=== PATIENT | female | born 1990 | race Caucasian/White ===

== ENCOUNTER 2017-08-28 18:15 | Emergency (ER) | payer BC ==
[2017-08-28 18:56] LABS: #Basophils 0.1 thou/uL (0.0-0.2); #Eosinphils 0.1 thou/uL (0.0-0.7); #Lymphocytes 2.5 thou/uL (1.20-3.40); #Monocytes 0.9 thou/uL (0.11-0.59); #Neutrophils 6.5 thou/uL (1.40-6.50); %Basophils 1.2 % (0.0-1.0); %Eosinophils 0.7 % (0.0-10.0); %Lymphocytes 24.4 % (21.0-51.0); %Monocytes 8.9 % (0.0-10.0); %Neutrophils 64.8 % (42.0-75.0); Hemoglobin 13.9 g/dL (12.0-16.0); Mean Corpuscular HGB CONC 33.3 g/dL (32.0-36.0); Mean Corpuscular Hemoglobin 31.9 pg (27.0-31.0); Mean Corpuscular Volume 95.7 fl (81.0-99.0); Mean Platelet Volume 6.9 fL (7.4-10.4); Platelet Count 314 thou/uL (130-400); RBC Distribution Width 11.1 % (11.5-14.5); Red Blood Cell (RBC) Count 4.36 mill/uL (4.20-5.40); White Blood Cell (WBC) Count 10.1 thou/uL (4.8-10.8)
[2017-08-28 19:01] LABS: Bilirubin Negative (Negative); Blood, Urine Negative (Negative); Clarity CLOUDY (Clear); Glucose, Urine (Dipstick) Negative (Negative); Leukocyte Negative (Negative); Nitrite Negative (Negative); Pregnancy Test - Urine (BHCG) POSITIVE (Negative); Protein, Urine (Dipstick) Negative (Neg-Trace); Specific Gravity, Urine 1.011 (1.002-1.036); Urobilinogen 0.2 mg/dL (0.2-1.0)
[2017-08-28 19:02] LABS: Pregu Control Background? CLEAR/WHITE (CLR/WHITE); Pregu Control Bar Appear? YES (CONTROL BAR); Specific Gravity 1.011 (1.002-1.036)
[2017-08-28 19:12] LABS: ALT (SGPT) 13 U/L (8-55); AST (SGOT) 16 U/L (5-34); Albumin 4.2 g/dL (3.5-5.0); Alkaline Phosphatase 55 U/L (40-150); Anion Gap 9 mmol/L (10-20); BUN (Urea Nitrogen) 10 mg/dL (7.0-18.7); Bilirubin, Total 0.4 mg/dL (0.2-1.2); Calc. Creatinine Clearance 0 mL/min (70-130); Calcium 9.3 mg/dL (7.8-10.44); Carbon Dioxide 27 mmol/L (22-29); Chloride 104 mmol/L (98-107); Estimated GFR-MDRD Greater than 90; Globulin 2.5 g/dL (2.4-3.5); Glucose 90 mg/dL (70-105); Lipase 40 U/L (8-78); Potassium 3.5 mmol/L (3.5-5.1); Protein, Total 6.7 g/dL (6.0-8.3); Sodium 136 mmol/L (136-145)
[2017-08-28] MEDS ORDERED: Metoclopramide HCl 10 MG/2 ML VIAL ONE (19:22)
== END 2017-08-28 22:40 | disposition home or self-care (01) ==
LOC: ERS 18:15
DX: O21.0 Mild hyperemesis gravidarum (principal); O99.341 Other mental disorders complicating pregnancy, first trimester; F41.9 Anxiety disorder, unspecified; Z3A.01 Less than 8 weeks gestation of pregnancy
CPT/HCPCS: 36415; 80053; 81003; 81025; 83690; 85025; 96361; 96365; J2765

== ENCOUNTER 2018-04-17 09:53 | Inpatient (IN) | payer BC ==
[2018-04-17] MEDS ORDERED: NS / Oxytocin 40 units/1000ml 1,000 ML IV PRN (10:09)
[2018-04-17] MEDS ORDERED: Promethazine HCl 25 MG/ML VIAL IM PRN ×3 (10:09→21:46)
[2018-04-17] MEDS ORDERED: Ibuprofen 800 MG TAB PO PRN (10:09)
[2018-04-17] MEDS ORDERED: Acetaminophen 500 MG TAB PO PRN (10:09)
[2018-04-17] MEDS ORDERED: Ondansetron HCl/PF 4 MG/2 ML Vial IVP PRN ×4 (10:09→21:46)
[2018-04-17] MEDS ORDERED: Lidocaine 1% (PF) 30 ML VIAL SC PRN (10:09)
--- NOTE | 2018-04-17 10:15 | PDOC.FPROB ---
FMR OB H&P: HPI - History of Present Illness Chief Complaint: SROM, Contractions Indentification: 27 year old History of Present Illness: 27 year old at 40.2 wks with KARI of 04/15/2018 presents with clear SROM around 7:35 this AM. Patient states that she is also having regular painful contractions that started 5 minutes after SROM. She endorses vaginal bleeding since SROM this AM, noted when using the restroom. Patient denies headache, vision changes, RUQ pain. She is requesting an epidural. 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 History: History of D&C - Surgical History Sx History: D&C - Social History Social History: Denies alcohol, drug, or tobacco use FMR OB H&P: Medications - Current Home Medications: Medication Instructions Recorded Confirmed Type No122/Iron/Folic Acid 1 tab PO DAILY 04/17/18 04/17/18 History [ Multi Tablet] Allergies/Adverse Reactions: Allergies Allergy/AdvReac Type Severity Reaction Status Date / Time No Known Allergies Allergy Verified 04/17/18 10:36 FMR OB H&P: ROS - Review of Systems General: denies: fever/chills, weight/appetite/sleep changes, fatigue Eyes: denies: vision changes, scotomas ENT: reports: nasal congestion, rhinorrhea. denies: sore throat, pain with swallowing Cardiovascular: denies: chest pain, palpitation, edema Respiratory: denies: cough, congestion, shortness of breath Gastrointestinal: denies: abdominal pain, nausea, vomiting, diarrhea Genitourinary (Female): reports: polyuria, vaginal bleeding. denies: dysuria, vaginal discharge Musculoskeletal: denies: pain Neurologic: denies: seizures, weakness Integumentary: denies: itching, rash, lesions Hematologic/Lymphatic: denies: prolonged or excessive bleeding Psychological: denies: depression, anxiety FMR OB H&P: Vital Signs - Maternal Vital signs: BP 125/78 Afebrile See EMR for other values - Heart Tones Baseline: 130 Variability: moderate Acceleration: present Deceleration: absent Category: category 1 [place] contractions every: q3-4 minutes FMR OB H&P: Physical Exam - Physical Exam General: NAD, awake, alert and oriented HEENT: MMM, grossly normal vision, grossly normal hearing Neck: supple Heart: RRR, no murmurs/rubs/gallops General: no respiratory distress, no retractions Abdomen: soft, gravid, non-tender Musculoskeletal: pulses present Neurological: no focal deficit Skin: no rash, capillary refill <2 seconds Lymphatic: no unusual bruising or bleeding Psychiatric: intact recent and remote memory, good judgement and insight, normal mood and affect - Pelvic Exam SVE: at 9:45 AM by nurse Presentation: cephalic FMR OB H&P: A/P - Problem List (1) SROM (spontaneous rupture of membranes) Current Visit: Yes Status: Acute Code(s): [id number] - Comment: - At 7:45 AM - Clear fluid - Painful contractions appx 5 minutes after SROM - Expectant management; anticipate vaginal delivery (2) Current Visit: Yes Status: Acute Qualifiers: Weeks of gestation: 40 weeks Qualified Code(s): Z3A.40 - 40 weeks gestation of Comment: 27 year old at 40.2 wks with KARI of 04/15/2018 - Uncomplicated - Expectant management Assessment and Plan: 27 year old at 40.2 wks SROM - At appx 7:45 AM, clear fluid - Contractions started 5 minutes after rupture of membranes - Cervical check: at 9:45 AM - Expectant management; recheck in 1 hour - Will consider augmentation wit pitocin in 1 hour if no change - Patient requesting epidural for pain control; anesthesia notified sIUP - Term at 40.2 wks with KARI of 04/15/2018 - See plan as above Hx of SAB x2 - s/p D&C x1 Disposition: Stable. Admit to L&D for expected vaginal delivery. Discussion: Date/Time: 04/17/18 1013 This H&P was discussed with Dr. Cr who agrees with the above documentation and plan. Signature: Paula Espinoza, PGY-2 Attending Addendum - Attending Addendum Date/Time: 04/17/18 1341 I personally evaluated the patient and discussed the management with Dr. Tejada. I agree with the History, Examination, Assessment and Plan documented above.
[2018-04-17 10:29] VITALS: BMI 35.6
[2018-04-17 10:39] LABS: Hemoglobin 13.1 g/dL (12.0-16.0); Mean Corpuscular HGB CONC 32.9 g/dL (32.0-36.0); Mean Corpuscular Hemoglobin 28.6 pg (27.0-31.0); Mean Corpuscular Volume 86.9 fL (78.0-98.0); Mean Platelet Volume 7.6 fL (7.4-10.4); Platelet Count 344 thou/uL (130-400); RBC Distribution Width 12.9 % (11.5-14.5); Red Blood Cell (RBC) Count 4.58 mill/uL (4.20-5.40); White Blood Cell (WBC) Count 9.7 thou/uL (4.8-10.8)
[2018-04-17] MEDS: Lactated Ringer's 1,000 ML IV SCH ×2 (10:40→12:26)
[2018-04-17 11:17] LABS: Syphilis Antibody Nonreactive (Nonreactive); Syphilis Antibody Index 0.04 S/CO (<1.00 Non-Reactive)
[2018-04-17 11:18] LABS: HBSAg Index 0.16 S/CO (0-0.99); Hep B Surf Ag Non-Reactive S/CO (NonReactive)
[2018-04-17] MEDS ORDERED: Fentanyl 4 mcg/Bup 0.1% Cadd 100 ML ONE (11:32)
[2018-04-17] MEDS ORDERED: PROPOFOL 200 MG/20 ML VIAL ONE (11:35)
[2018-04-17] MEDS ORDERED: Ketorolac Tromethamine 30 MG/ML VIAL ONE ×2 (11:35→18:33)
[2018-04-17] MEDS ORDERED: Dexamethasone 20 MG/5 ML VIAL ONE (11:35)
[2018-04-17] MEDS ORDERED: PHENYLEPHRINE-NS 100 MCG/ML 10 ML SYRINGE ONE ×2 (11:35→18:41)
[2018-04-17] MEDS ORDERED: Lidocaine 2% MPF 10 ML AMP (For Epidural Use) ONE (11:35)
[2018-04-17] MEDS ORDERED: Succinylcholine Chloride 20 MG/ML 10 ml SYRINGE FS ONE ×2 (11:35→18:21)
--- NOTE | 2018-04-17 11:50 | PDOC.EVN ---
Event Note - Event Note Event Note: at 402/7 weeks presents with SROM at 0745, now with UCs. SVE on admit is /vtx. FHts stable, UCs q 2-4 mins. GBS reportedly negative. Requesting epidural. Dr. Darnell has been notified.
--- NOTE | 2018-04-17 12:28 | PDOC.LDPN ---
Labor & Delivery Progress Note - Subjective Subjective: comfortable - Objective Vital signs reviewed and normal: yes General: NAD, resting Uterine fundus: non tender SVE: 6/90/0 at 12:25 by Zakia Dilation: 6 Effacement: 90% Station: 0 FHT: category 1, variability present [place] contractions every: q2-3 minutes - Assessment (1) SROM (spontaneous rupture of membranes) Code(s): [id number] - Current Visit: Yes Status: Acute Comment: - At 7:45 AM - Clear fluid - Painful contractions appx 5 minutes after SROM - Expectant management; anticipate vaginal delivery (2) Current Visit: Yes Status: Acute Qualifiers: Weeks of gestation: 40 weeks Qualified Code(s): Z3A.40 - 40 weeks gestation of Comment: 27 year old at 40.2 wks with KARI of 04/15/2018 - Uncomplicated - Expectant management (3) Active labor at term Code(s): [id number] - Current Visit: Yes Status: Acute Comment: Cervical check at 9:40 was 4/90/0 Repeat cervical check at 12:25 was 6/90/0 Expectant management Category I strip Plan: continue plan of care <Paula Espinoza - Last Filed: 04/17/18 12:26> - Assessment (1) SROM (spontaneous rupture of membranes) Code(s): [id number] - Current Visit: Yes Status: Acute Comment: - At 7:45 AM - Clear fluid - Painful contractions appx 5 minutes after SROM - Expectant management; anticipate vaginal delivery (2) Current Visit: Yes Status: Acute Qualifiers: Weeks of gestation: 40 weeks Qualified Code(s): Z3A.40 - 40 weeks gestation of Comment: 27 year old at 40.2 wks with KARI of 04/15/2018 - Uncomplicated - Expectant management <William Cr - Last Filed: 04/17/18 13:43> Attending Addendum - Attending Addendum Date/Time: 04/17/18 1342 I have evaluated the patient and discussed the management with Dr. Tejada. I agree with the Examination, Assessment and Plan documented above. The patient is progressing and has an epidural in place. <William Cr - Last Filed: 04/17/18 13:43>
--- NOTE | 2018-04-17 14:30 | PDOC.LDPN ---
Labor & Delivery Progress Note - Subjective Subjective: comfortable - Objective Vital signs reviewed and normal: yes General: NAD, resting Uterine fundus: non tender SVE: 2:25 by Zakia Dilation: 8 Effacement: 90% Station: 0 FHT: category 1, variability present [place] contractions every: q2-3 minutes - Assessment (1) SROM (spontaneous rupture of membranes) Code(s): [id number] - Current Visit: Yes Status: Acute Comment: - At 7:45 AM - Clear fluid - Painful contractions appx 5 minutes after SROM - Expectant management; anticipate vaginal delivery (2) Current Visit: Yes Status: Acute Qualifiers: Weeks of gestation: 40 weeks Qualified Code(s): Z3A.40 - 40 weeks gestation of Comment: 27 year old at 40.2 wks with KARI of 04/15/2018 - Uncomplicated - Expectant management (3) Active labor at term Code(s): [id number] - Current Visit: Yes Status: Acute Comment: Cervical check at 9:40 was 4/90/0 Repeat cervical check at 12:25 was 6/90/0 Repeat cervical check at 2:25 was 8/90/0 Expectant management Category I strip Plan: continue plan of care <Paula Espinoza - Last Filed: 04/17/18 14:29> - Assessment (1) SROM (spontaneous rupture of membranes) Code(s): [id number] - Current Visit: Yes Status: Acute Comment: - At 7:45 AM - Clear fluid - Painful contractions appx 5 minutes after SROM - Expectant management; anticipate vaginal delivery (2) Current Visit: Yes Status: Acute Qualifiers: Weeks of gestation: 40 weeks Qualified Code(s): Z3A.40 - 40 weeks gestation of Comment: 27 year old at 40.2 wks with KARI of 04/15/2018 - Uncomplicated - Expectant management <William Cr - Last Filed: 04/17/18 16:02> Attending Addendum - Attending Addendum Date/Time: 04/17/18 1601 I have evaluated the patient and discussed the management with Dr. Tejada. I agree with the Examination, Assessment and Plan documented above. <William Cr - Last Filed: 04/17/18 16:02>
--- NOTE | 2018-04-17 17:40 | PDOC.LDPN ---
Labor & Delivery Progress Note - Subjective Subjective: painful contractions, other (Patient feels as though epidural is not working as effectively) - Objective Vital signs reviewed and normal: yes General: resting Uterine fundus: non tender SVE: 5:15 Dilation: 10 Effacement: 100% Station: 2+ FHT: category 1, variability present [place] contractions every: q2-3 minutes - Assessment (1) SROM (spontaneous rupture of membranes) Code(s): [id number] - Current Visit: Yes Status: Acute Comment: - At 7:45 AM - Clear fluid - Painful contractions appx 5 minutes after SROM - Expectant management; anticipate vaginal delivery (2) Current Visit: Yes Status: Acute Qualifiers: Weeks of gestation: 40 weeks Qualified Code(s): Z3A.40 - 40 weeks gestation of Comment: 27 year old at 40.2 wks with KARI of 04/15/2018 - Uncomplicated - Expectant management (3) Active labor at term Code(s): [id number] - Current Visit: Yes Status: Acute Comment: Complete: Will let patient labor down Expectant management Category I strip Plan: continue plan of care <Paula Espinoza - Last Filed: 04/17/18 17:52> - Assessment (1) SROM (spontaneous rupture of membranes) Code(s): [id number] - Current Visit: Yes Status: Acute Comment: - At 7:45 AM - Clear fluid - Painful contractions appx 5 minutes after SROM - Expectant management; anticipate vaginal delivery (2) Current Visit: Yes Status: Acute Qualifiers: Weeks of gestation: 40 weeks Qualified Code(s): Z3A.40 - 40 weeks gestation of Comment: 27 year old at 40.2 wks with KARI of 04/15/2018 - Uncomplicated - Expectant management <William Cr - Last Filed: 04/17/18 19:15> Attending Addendum - Attending Addendum Date/Time: 04/17/181913 I personally evaluated the patient and discussed the management with Dr. Tejada. I agree with the Assessment and Plan documented above. <William Cr - Last Filed: 04/17/18 19:15>
[2018-04-17] MEDS ORDERED: PROPOFOL 20 ML ONE (18:21)
[2018-04-17] MEDS ORDERED: Fentanyl 100 MCG/2 ML VIAL ONE (18:21)
[2018-04-17] MEDS ORDERED: CEFAZOLIN/Water 2 GM/20 ML SYRINGE ONE (18:24)
[2018-04-17] MEDS ORDERED: Oxytocin 10 UNITS/ML VIAL ONE (18:29)
[2018-04-17] MEDS ORDERED: Dexamethasone 4 mg/ml Vial ONE (18:34)
--- NOTE | 2018-04-17 18:56 | PDOC.OPDEL ---
OB Operative/Delivery Note Delivery Dr/Surgeon: Neelam Assist: Rashid Pre-Delivery Diagnosis: active labor, non-reassuring tracing Procedure/Post Delivery Dx: primary low transverse CS Weeks gestation: 40 Anesthesia: epidural - Findings A Sex: male Weight: 7 lb 13 oz - 1 min: 8 - 5 min: 9 - Additional Findings/Plan Placenta delivered: spontaneous findings: low transverse hysterotomy without extension, normal uterus, normal tubes, normal ovaries Estimated blood loss: QBL pending Post delivery plan: routine recovery
[2018-04-17] MEDS ORDERED: Morphine PF 1 MG/ML SYR ONE (19:01)
[2018-04-17 19:07] LABS: Actual Bicarbonate (HCO3a) 19.1 mEq/L (22-28); Analyzer IN Cardio OR; Base Excess (BEa) -9.6 mEq/L (-2.0 to +3.0)
[2018-04-17 19:10] LABS: Actual Bicarbonate (HCO3v) 21 mEq/L (22-28); Analyzer IN Cardio OR; Base Excess -9.1 mEq/L (-2.0 to +3.0)
--- NOTE | 2018-04-17 19:11 | PDOC.EVN ---
Event Note - Event Note Event Note: Pt. attempted to push. SVE showed rim from 10-12. Fhts with late appearing decels followed by a bradycardia. Taken to OR where FHTs did not recover to above 100bpm. Epidural was bolused but did not have surgical level. Decision to proceed to stat C/S with ET anesthesia 2* to worrisome FHTs. C/S findings have been dictated in separate report.
[2018-04-17 19:13] LABS: pH (Cord, venous) 7.16 (7.32-7.43)
[2018-04-17] MEDS ORDERED: Naloxone HCl 0.4 mg/ml Vial IV PRN (19:25)
[2018-04-17] MEDS ORDERED: Hydrocerin (Eucerin) Cream 120 gm Jar TOP PRN (19:25)
[2018-04-17] MEDS ORDERED: Meperidine HCl/PF 25 MG/ML VIAL SLOW IVP PRN (19:25)
[2018-04-17] MEDS ORDERED: L&D-Morphine 4 MG/ML VIAL SLOW IVP PRN (19:25)
[2018-04-17] MEDS ORDERED: HYDROmorphone 2 MG/ML VIAL SLOW IVP PRN (19:25)
[2018-04-17] MEDS ORDERED: Ketorolac Tromethamine 30 MG/ML VIAL IVP PRN (19:25)
[2018-04-17] MEDS ORDERED: Promethazine HCl 25 MG SUPP PR PRN (19:25)
[2018-04-17] MEDS ORDERED: Naloxone HCl 0.4 mg/ml Vial IVP PRN ×2 (19:25)
[2018-04-17] MEDS ORDERED: Communication Order-Pharmacy FS SCH (19:30)
--- NOTE | 2018-04-17 19:31 | OP ---
DATE OF PROCEDURE: 04/17/2018 ATTENDING PHYSICIAN: Eliud Darnell D.O PREOPERATIVE DIAGNOSES: 1. Term intrauterine in labor. 2. distress. POSTOPERATIVE DIAGNOSES: 1. Term intrauterine in labor. 2. distress. PROCEDURE: Stat primary low segment transverse section via Pfannenstiel incision. SURGEON: Rolly Cr M.D. MEDICAL STENOGRAPHER: Eliud Darnell D.O and Lena Tejada D.O., resident physician. ANESTHESIA: General endotracheal. ESTIMATED BLOOD LOSS: 600 mL COMPLICATIONS: None. FINDINGS: 1. Viable male , weight 7 pounds 13 ounces, found in the transverse position with Apgars 8 and 9. 2. Normal uterus, tubes, and ovaries bilaterally. TECHNIQUE IN DETAIL: The patient was rapidly prepped and draped due to worrisome heart tones and the patient was put to sleep with general anesthesia. A Pfannenstiel incision was made and the abdomen was rapidly entered in layers. The uterus was identified and a bladder flap was created in the peritoneum. A transverse incision was made across the lower uterine segment and was extended bluntly with the fingers. The amniotic fluid was noted to be clear. The fetus was delivered from the transverse position and the nasopharynx were bulb suctioned. The baby was vigorous upon delivery. The cord was clamped and cut. The baby was taken to the warmer with NICU personnel present. Cord gases and cord blood were obtained. The placenta was manually removed. The uterus was exteriorized and the inside of the uterus was curetted with a dry lap to remove all placental fragments. Closure of the uterine incision was begun using a running locking suture of Monocryl. Complete hemostasis was achieved with the addition of interrupted Monocryl sutures. The uterus was replaced into the abdominal cavity and was again noted to be hemostatic. The pelvic gutters were cleared of all clots and debris and the pelvis was irrigated. No attempt was made to close the peritoneum. The fascia was closed using two sutures of PDS brought laterally to the midline. The subcutaneous tissue was thoroughly irrigated and made dry using Bovie coagulation technique. The skin was closed in a subcuticular fashion using Monocryl. Skin glue was placed across the incision. Sponge, lap, and needle counts were correct. The patient was awakened and taken to the recovery room in good condition. [facility] DAVID HOSPITALSean
[2018-04-17] MEDS ORDERED: NS / Oxytocin 40 units/1000ml 1,000 ML IV SCH (21:46)
[2018-04-17] MEDS ORDERED: Acetaminophen 325 MG TAB PO PRN (21:46)
[2018-04-17] MEDS ORDERED: Lanolin Ointment 7 GM TUBE TOP PRN (21:46)
[2018-04-17] MEDS ORDERED: Bisacodyl 10 MG SUPP PR PRN (21:46)
[2018-04-17] MEDS ORDERED: Lactated Ringer's 1,000 ML IV SCH (21:46)
[2018-04-17] MEDS ORDERED: Adacel (T-DAP) 0.5 ML VIAL IM ONE (22:00)
[2018-04-17] MEDS ORDERED: Docusate Calcium (SURFAK) 240 MG CAP PO SCH (22:00)
[2018-04-17] MEDS ORDERED: Ferrous Sulfate 325 MG TAB PO SCH (22:00)
[2018-04-17] MEDS: diphenhydrAMINE 50 MG/ML VIAL IVP PRN (23:26)
--- NOTE | 2018-04-18 00:10 | PDOC.PP ---
Post Progress Note Post Day #: POD#1 Subjective: Resting comfortably, no complaints. PO intake tolerated: yes Flatus: no Ambulation: no Weight Weight 88.451 kg - Physical Examination General: NAD Respiratory: non-labored breathing Abdominal: no distention Skin: CS incision dry & intact Psychiatric: normal affect Result Diagrams: 04/17/18 10:28 Additional Labs: Post Labs Blood Type A POSITIVE 04/17/18 10:28 Hep Bs Antigen Non-Reactive S/CO (NonReactive) 04/17/18 10:28 (1) SROM (spontaneous rupture of membranes) Code(s): [id number] - Status: Acute Comment: - At 7:45 AM - Clear fluid - Painful contractions appx 5 minutes after SROM - Expectant management; anticipate vaginal delivery (2) Status: Acute Qualifiers: Weeks of gestation: 40 weeks Qualified Code(s): Z3A.40 - 40 weeks gestation of Comment: 27 year old at 40.2 wks with KARI of 04/15/2018 - Uncomplicated - Expectant management - Assessment/Plan Stable postop. Routine postop care. H&H in AM.
[2018-04-18] MEDS: diphenhydrAMINE 50 MG/ML VIAL IVP PRN (03:49)
[2018-04-18 06:11] LABS: Mean Corpuscular HGB CONC 32.7 g/dL (32.0-36.0); Mean Corpuscular Hemoglobin 28.9 pg (27.0-31.0); Mean Corpuscular Volume 88.3 fL (78.0-98.0); Mean Platelet Volume 7.1 fL (7.4-10.4); Platelet Count 254 thou/uL (130-400); RBC Distribution Width 12.7 % (11.5-14.5); Red Blood Cell (RBC) Count 3.46 mill/uL (4.20-5.40); White Blood Cell (WBC) Count 15.8 thou/uL (4.8-10.8)
[2018-04-18] MEDS ORDERED: Meperidine HCl/PF 25 MG/ML VIAL IM PRN (07:30)
[2018-04-18] MEDS ORDERED: Acetaminophen/Codeine 30-300mg Tablet PO PRN (07:30)
[2018-04-18] MEDS: diphenhydrAMINE 25 MG CAP PO PRN ×2 (07:52→12:18)
[2018-04-18] MEDS ORDERED: Bupivacaine HCl 0.5%/Epinephrine 1:200,000/PF 30 ml Vial ONE (08:16)
[2018-04-18] MEDS ORDERED: Lidocaine 2% MPF 10 ML AMP (For Epidural Use) ONE (08:16)
[2018-04-18] MEDS: Docusate Calcium (SURFAK) 240 MG CAP PO SCH ×2 (09:35→21:53)
[2018-04-18] MEDS: Simethicone Chewable 80 MG TAB PO PRN (09:35)
[2018-04-18] MEDS: Prenatal Vitamin 1 TAB PO SCH (09:35)
[2018-04-18] MEDS: Ferrous Sulfate 325 MG TAB PO SCH ×2 (09:35→17:51)
[2018-04-18] MEDS: Acetaminophen/Codeine 30-300mg Tablet PO PRN ×2 (10:28→21:54)
[2018-04-18] MEDS: Ibuprofen 800 MG TAB PO SCH ×2 (14:31→21:54)
[2018-04-19] MEDS: Acetaminophen/Codeine 30-300mg Tablet PO PRN ×4 (01:36→13:31)
[2018-04-19] MEDS: Simethicone Chewable 80 MG TAB PO PRN (01:47)
[2018-04-19] MEDS: Ibuprofen 800 MG TAB PO SCH ×3 (05:23→21:29)
--- NOTE | 2018-04-19 09:11 | PDOC.PP ---
Post Progress Note Post Day #: 2 Subjective: sore today, baby nursing well PO intake tolerated: yes Flatus: yes Ambulation: yes Vital Signs (12 hours) Temp Pulse Resp BP Pulse Ox 04/19/18 07:42 97.7 F 65 20 97/63 97 04/19/18 05:15 97.8 F 73 20 106/61 04/19/18 00:40 97.7 F 59 L 20 114/71 Weight Weight 195 lb - Physical Examination General: NAD Respiratory: non-labored breathing Deviation from normal: mild tympany, appropriate tenderness Extremities: negative homans (B) Skin: CS incision dry & intact, no rash Neurological: no gross focal deficits Psychiatric: A&Ox3, normal affect Result Diagrams: 04/18/18 05:20 Additional Labs: Post Labs Blood Type A POSITIVE 04/17/18 10:28 Hep Bs Antigen Non-Reactive S/CO (NonReactive) 04/17/18 10:28 (1) S/P primary low transverse Code(s): Z98.891 - HISTORY OF UTERINE SCAR FROM PREVIOUS SURGERY Status: Acute - Assessment/Plan A/P: POD2 sp STAT 1CS for NRFHT, doing well, baby nursing well. Discussed likely DC home tomorrow.
[2018-04-19] MEDS: Prenatal Vitamin 1 TAB PO SCH (09:28)
[2018-04-19] MEDS: Docusate Calcium (SURFAK) 240 MG CAP PO SCH ×2 (09:28→21:29)
[2018-04-19] MEDS: Ferrous Sulfate 325 MG TAB PO SCH ×2 (09:29→17:02)
[2018-04-20] MEDS: Acetaminophen/Codeine 30-300mg Tablet PO PRN (02:54)
[2018-04-20] MEDS: Ibuprofen 800 MG TAB PO SCH (05:18)
[2018-04-20] MEDS: Simethicone Chewable 80 MG TAB PO PRN (05:21)
[2018-04-20] MEDS: Ferrous Sulfate 325 MG TAB PO SCH (07:15)
--- NOTE | 2018-04-20 07:48 | PDOC.PP ---
Post Progress Note Post Day #: 3 Subjective: comfortable now in bed, was in intense pain in the middle of the night after she declined her pain meds due to warnings from about breast feeding and pain medications, min lochia, ambulating, taz diet PO intake tolerated: yes Flatus: yes Ambulation: yes Vital Signs (12 hours) Temp Pulse Resp BP Pulse Ox 04/19/18 21:30 97.7 F 77 18 105/57 L 97 Weight Weight 195 lb - Physical Examination General: NAD Respiratory: non-labored breathing Abdominal: no distention Skin: CS incision dry & intact Neurological: no gross focal deficits Psychiatric: A&Ox3, normal affect Result Diagrams: 04/18/18 05:20 Additional Labs: Post Labs Blood Type A POSITIVE 04/17/18 10:28 Hep Bs Antigen Non-Reactive S/CO (NonReactive) 04/17/18 10:28 (1) S/P primary low transverse Code(s): Z98.891 - HISTORY OF UTERINE SCAR FROM PREVIOUS SURGERY Status: Acute - Assessment/Plan POD#3 Doing well, discussed risk of pain medications with breast feeding and limited and early post use of pain medications are indicated at this time. Plan for DC today.
[2018-04-20 08:06] VITALS: BP 111/66; TEMP 98.2
[2018-04-20] MEDS: Docusate Calcium (SURFAK) 240 MG CAP PO SCH (09:27)
[2018-04-20] MEDS: Prenatal Vitamin 1 TAB PO SCH (09:27)
== END 2018-04-20 12:15 | disposition home or self-care (01) | DRG 788 ==
LOC: L&D 09:53 → EEVIPCON 09:53 → L&D 19:37 → 3SW 21:36
PROVIDERS: ADMIT Obstetrics & Gynecology; ATTEND Obstetrics & Gynecology
PROC: 10D00Z1 Extraction of Products of Conception, Low, Open Approach (ICD-10-PCS; principal; 2018-04-17)
DX: O48.0 Post-term pregnancy (principal); Z3A.40 40 weeks gestation of pregnancy; O77.9 Labor and delivery complicated by fetal stress, unspecified; Z37.0 Single live birth
CPT/HCPCS: 36415; 51702; 82805; 85027; 86780; 86850; 86900; 86901; 87340; 99285; J0670; J1100; J1200; J1885; J2001; J2274; J2405; J2590; J2704; J3010